=== PATIENT | female | born 1995 | race Two or more races ===

== ENCOUNTER 2024-01-19 21:13 | Emergency (ER) | payer MEDICAID, OTHER ==
[~2024-01-19] VITALS: Ht 182.9 cm; Wt 98.0 kg
[2024-01-19 21:26] VITALS: BP 157/96; PULSE 95; RESP 20; O2SAT 99
[2024-01-20] MEDS ORDERED: CLIN1CAP70 PO (00:28)
[2024-01-20] MEDS ORDERED: HYDR-4902 PO (00:28)
[2024-01-20] MEDS ORDERED: IBUPROFEN 800 MG TAB PO ONE (00:30)
[2024-01-20] MEDS: LIDOCAINE VISCOUS 2% 15ML UD MT ONE (00:30)
[2024-01-20] MEDS: cefTRIAXone SOD 1,000 MG VL IM ONE (01:25)
[2024-01-20] MEDS: HYDROcodone-ACET 5/325MG TAB PO ONE (01:31)
== END 2024-01-20 02:39 | disposition home or self-care (01) ==
LOC: ER 21:13
DX: K04.7 Periapical abscess without sinus (principal); L03.211 Cellulitis of face
CPT/HCPCS: 96372; 99283; J0696